=== PATIENT | female | born 1985 | race Caucasian/White ===

== ENCOUNTER 2017-05-30 11:56 | Emergency (ER) | payer BC ==
[2017-05-30 12:46] VITALS: BP 125/84; PULSE 74; RESP 16; TEMP 98.2; O2SAT 99
[2017-05-30 13:34] LABS: BASO % 0.5 % (0.0-2.0); EOS # 0.1 K/uL (0.0-0.7); EOS % 0.5 % (0.0-4.0); HEMOGLOBIN 13.8 g/dL (12.0-16.0); LYMPH # 2.2 K/uL (1.0-4.3); LYMPH % 23.3 % (20.0-40.0); MEAN CELL VOLUME 87.5 fl (81.0-99.0); MEAN CORPUSCULAR HEMOGLOBIN 29.1 pg (27.0-31.0); MEAN CORPUSCULAR HGB CONC 33.3 g/dL (33.0-37.0); MEAN PLATELET VOLUME 8.1 fl (7.2-11.7); MONO # 0.7 K/uL (0.0-0.8); MONO % 7.2 % (0.0-10.0); NEUT # 6.4 K/uL (1.8-7.0); NEUT % 68.5 % (50.0-75.0); NRBC % 0.1 % (0.0-0.0); RBC 4.75 Mil/uL (3.80-5.20); RED CELL DISTRIBUTION WIDTH 14.4 % (11.5-14.5); WHITE BLOOD COUNT 9.4 K/uL (4.8-10.8)
[2017-05-30 13:43] LABS: SQUAMOUS EPITHIAL 7 /hpf (0-5); URINE BACTERIA RARE (<OCC); URINE BILIRUBIN NEGATIVE (NEGATIVE); URINE BLOOD LARGE (NEGATIVE); URINE CLARITY CLOUDY (Clear); URINE COLOR YELLOW (YELLOW); URINE GLUCOSE (UA) NEG (Normal); URINE LEUKOCYTE ESTERASE TRACE Leu/uL (Negative); URINE PROTEIN 100 mg/dL (NEGATIVE); URINE UROBILINOGEN 0.2-1.0 mg/dL (0.2-1.0)
[2017-05-30 13:44] LABS: ALB/GLOB RATIO 1.1 (1.0-2.1); ALBUMIN 4.2 g/dL (3.5-5.0); ALT/SGPT 79 U/L (9-52); AST/SGOT 50 U/L (14-36); BLOOD UREA NITROGEN 11 mg/dl (7-17); CALCIUM 9.3 mg/dL (8.4-10.2); GFR AFRICAN-AMERICAN > 60; GFR NON-AFRICAN AMERICAN > 60
--- NOTE | 2017-05-30 14:50 | US ---
HISTORY: preg w heavy bleeding hx spont abort and ectopic beta HCG levels 129.00 COMPARISON: No current exam for this noted TECHNIQUE: Transvaginal technique FINDINGS: UTERUS: Measures 8.7 x 4.7 x 6.5 cm. Normal in size and appearance. No fibroid or other mass lesion seen. ENDOMETRIUM: Measures 9 mm in diameter. No intrauterine gestational sac seen CERVIX: Nabothian cysts noted RIGHT OVARY: Measures 3.6 x 2.3 x 2.8 cm. No solid mass. Normal flow. LEFT OVARY: Measures 3.7 x 2.0 x 2.7 cm. No solid mass. Normal flow. FREE FLUID: Large amount of free fluid in the right adnexa right cul-de-sac is present there are low level echoes within this fluid. The possibility of hemorrhagic go free fluid and an ectopic status needs to be considered. Patient also has some pain in the right hemipelvis. Beta HCG levels 129. And heavy bleeding history provided. History of prior spontaneous abortions an ectopic pregnancies OTHER FINDINGS: None. IMPRESSION: No normal-appearing intrauterine gestational sac. No viable ectopic pole identified. An ectopic nevertheless needs to be in the differential given the positive beta HCG levels, hemorrhagic appearing moderate free fluid present in the pelvis. Clinical correlation and follow-up recommended
--- NOTE | 2017-05-30 15:33 | ED PDOC ---
HPI: Female Pain Time Seen by Provider: 05/30/17 12:28 Chief Complaint (Nursing): Female Genitourinary Chief Complaint (Provider): with bleeding History Per: Patient History/Exam Limitations: no limitations Onset/Duration Of Symptoms: Hrs (4) Current Symptoms Are (Timing): Still Present Severity: None Quality Of Discomfort: Cramping Alleviating Factors: None Abnormal Vaginal Bleeding: Yes Last Menstral Period: 04/13/2017 : 6 Para: 2 Miscarriage: 3 (2-SA and 1-ectopic) Past Medical History Vital Signs: Last Vital Signs Temp 98.2 F 05/30/17 12:41 Pulse 74 05/30/17 12:41 Resp 16 05/30/17 12:41 BP 125/84 05/30/17 12:41 Pulse Ox 99 05/30/17 12:41 - Medical History PMH: Asthma - Home Medications Home Medications: Ambulatory Orders Medication Instructions Recorded Naproxen 375 mg PO Q8 PRN #21 tab 09/06/15 - Allergies Allergies/Adverse Reactions: Allergies Allergy/AdvReac Type Severity Reaction Status Date / Time No Known Allergies Allergy Verified 05/30/17 12:41 Review of Systems Genitourinary Female: Positive for: Vaginal Bleeding, Other ( approx 4- 6 weeks) Physical Exam - Reviewed Nursing Documentation Reviewed: Yes Vital Signs Reviewed: Yes - Physical Exam Appears: Positive for: Non-toxic, No Acute Distress Cardiovascular/Chest: Positive for: Chest Non Tender Respiratory: Positive for: Normal Breath Sounds. Negative for: Decreased Breath Sounds, Accessory Muscle Use, Crackles, Rales, Stridor, Wheezing Pulses-Carotid (L): 2+ Pulses-Carotid (R): 2+ Pulses-Dorsalis Pedis (R): 2+ Gastrointestinal/Abdominal: Positive for: Bowel Sounds. Negative for: Tenderness Pelvic Exam: Positive for: Active Bleeding - Laboratory Results Result Diagrams: 05/30/17 12:20 05/30/17 12:20 - ECG O2 Sat by Pulse Oximetry: 99 Medical Decision Making Medical Decision Making: r/o spontaneous r/o ectopic U/S indicates free fluid at both right and left adenxa Disposition - Clinical Impression Clinical Impression: Female genitourinary symptoms, - Patient ED Disposition Is Patient to be Admitted: No Discussed With : Samuel Nava (Dr Nava was consulted as the oncall OB as well as the patient's personal OB: he indicated that she should follow up in the office, return to ED if bleeding does not subside or pain worsens) Doctor Will See Patient In The: Office Counseled Patient/Family Regarding: Studies Performed, Diagnosis, Need For Followup - Disposition Referrals: Samuel Nava MD [Family Provider] - Condition: STABLE Instructions: Medications and , - The First Month, - The Second Month, - The Third Month, Activity During Forms: [employer] (Kiswahili)
== END 2017-05-30 16:29 | disposition home or self-care (01) ==
LOC: H.ER 11:56
DX: O26.859 Spotting complicating pregnancy, unspecified trimester (principal)

== ENCOUNTER 2017-06-01 10:40 | Emergency (ER) | payer BC ==
[2017-06-01 11:02] VITALS: BP 117/66; PULSE 76; RESP 20; TEMP 98.7; O2SAT 99; BMI 34.1
--- NOTE | 2017-06-01 11:20 | ED PDOC ---
HPI: Female Pain Time Seen by Provider: 06/01/17 10:43 Chief Complaint (Nursing): Female Genitourinary Chief Complaint (Provider): Vaginal bleeding in History Per: Patient History/Exam Limitations: no limitations Onset/Duration Of Symptoms: Days Current Symptoms Are (Timing): Still Present Additional Complaint(s): 32 yo female with history of 1 ectopic presents with abdominal pain and vaginal bleeding at 7 weeks of gestation, LMP 04/13/17. Pt seen in ER 2 days ago with similar symptoms and no IUP seen on US. Beta 129 on 05/30/17. Past Medical History Reviewed: Historical Data, Nursing Documentation, Vital Signs Vital Signs: Last Vital Signs Temp 98.7 F 06/01/17 10:58 Pulse 76 06/01/17 10:58 Resp 20 06/01/17 10:58 BP 117/66 06/01/17 10:58 Pulse Ox 99 06/01/17 10:58 - Medical History PMH: Asthma - Surgical History Surgical History: No Surg Hx - Family History Family History: States: No Known Family Hx - Living Arrangements Living Arrangements: With Family - Social History Current smoker - smoking cessation education provided: No - Home Medications Home Medications: Ambulatory Orders Medication Instructions Recorded Naproxen 375 mg PO Q8 PRN #21 tab 09/06/15 - Allergies Allergies/Adverse Reactions: Allergies Allergy/AdvReac Type Severity Reaction Status Date / Time No Known Allergies Allergy Verified 06/01/17 10:57 Review of Systems ROS Statement: Except As Marked, All Systems Reviewed And Found Negative Constitutional: Negative for: Fever, Chills Gastrointestinal: Positive for: Abdominal Pain. Negative for: Nausea, Vomiting Genitourinary Female: Positive for: Vaginal Bleeding. Negative for: Vaginal Discharge Physical Exam - Reviewed Nursing Documentation Reviewed: Yes Vital Signs Reviewed: Yes - Physical Exam Appears: Positive for: Well, Non-toxic, No Acute Distress Head Exam: Positive for: ATRAUMATIC, NORMAL INSPECTION, NORMOCEPHALIC Skin: Positive for: Normal Color, Warm, DRY Eye Exam: Positive for: Normal appearance ENT: Positive for: Normal ENT Inspection Neck: Positive for: Normal, Painless ROM Cardiovascular/Chest: Positive for: Regular Rate, Rhythm Respiratory: Positive for: Normal Breath Sounds. Negative for: Accessory Muscle Use, Respiratory Distress Back: Positive for: Normal Inspection Extremity: Positive for: Normal ROM Neurologic/Psych: Positive for: Alert, Oriented - Laboratory Results Result Diagrams: 06/01/17 11:37 06/01/17 11:37 - ECG O2 Sat by Pulse Oximetry: 99 Medical Decision Making Medical Decision Making: Repeat labs and US in ER. Beta Hcg is 57 today, approx 505% decreased. No IIUP on US. Pt has appointment on sunday with Dr. Nava. Disposition - Clinical Impression Clinical Impression: Miscarriage - Disposition Referrals: Jm Treviño MD [Staff Provider] - Disposition Time: 13:41 Condition: STABLE Additional Instructions: Please follow-up with SENIOR [facility]URITY ANALYST. Instructions: Miscarriage Forms: [employer] (Brazilian)
[2017-06-01 11:46] LABS: HEMOGLOBIN 13.4 g/dL (12.0-16.0); MEAN CELL VOLUME 88.2 fl (81.0-99.0); MEAN CORPUSCULAR HGB CONC 32.9 g/dL (33.0-37.0); RBC 4.61 Mil/uL (3.80-5.20); RED CELL DISTRIBUTION WIDTH 14.3 % (11.5-14.5)
[2017-06-01 11:53] LABS: ALT/SGPT 79 U/L (9-52); AST/SGOT 51 U/L (14-36); BLOOD UREA NITROGEN 13 mg/dl (7-17); GFR AFRICAN-AMERICAN > 60; GFR NON-AFRICAN AMERICAN > 60
--- NOTE | 2017-06-01 13:04 | US ---
HISTORY: abdominal pain, bleeding COMPARISON: Transvaginal obstetric ultrasound examination 05/30/2017. TECHNIQUE: Transvaginal and limited transabdominal pelvic ultrasound was performed with longitudinal and transverse images submitted for interpretation. FINDINGS: UTERUS: Measures 10.3 x 8.4 x 6.4 cm. Normal in size and appearance. No fibroid or other mass lesion seen. ENDOMETRIUM: Measures 10 mm in diameter. The endometrium appears unremarkable diffusely. No intrauterine gestation is identified at this time or even gestational sac. CERVIX: Nabothian cysts are again seen the cervix which is otherwise unremarkable. RIGHT OVARY: Measures 2.9 x 2.9 x 2.3 cm. No solid mass. Normal flow. No definite ectopic gestation identified. LEFT OVARY: Left ovary is not identified currently, most likely a function of overlying bowel gas obscuring it. No definite pattern of suggest ectopic at the left adnexal compartment. FREE FLUID: No significant free fluid noted. OTHER FINDINGS: None. IMPRESSION: Once again, there is no intrauterine gestation appreciated with the examination of the uterus unremarkable throughout. Nabothian cysts again seen the cervix. No definitive at adnexal evidence to suggest ectopic gestation. Further, decreasing serum beta HCG levels from 04/16 previously to 57.3 currently is noted. Consider failure of gestation as a primary diagnosis as result of sonographic and beta HCG findings. Ectopic gestation is not identified and is felt to be unlikely however clinical correlation is advised.
== END 2017-06-01 13:53 | disposition home or self-care (01) ==
LOC: H.ER 10:40
DX: O03.9 Complete or unspecified spontaneous abortion without complication (principal); Z3A.01 Less than 8 weeks gestation of pregnancy; J45.909 Unspecified asthma, uncomplicated

== ENCOUNTER 2018-01-01 16:45 | Emergency (ER) | payer BC ==
[2018-01-01 16:45] VITALS: BMI 34.1
[2018-01-01 17:01] VITALS: BP 113/63; PULSE 60; RESP 16; TEMP 98.6; O2SAT 96
== END 2018-01-01 18:15 | disposition left against medical advice (07) ==
LOC: H.ER 16:45
DX: Z02.89 Encounter for other administrative examinations (principal)

== ENCOUNTER 2018-04-26 08:57 | Emergency (ER) | payer BC ==
[2018-04-26 10:05] VITALS: BMI 25.7
--- NOTE | 2018-04-26 16:14 | US ---
Date of service: 04/26/2018 PROCEDURE: Obstetrical ultrasound examination HISTORY: Vaginal Bleeding COMPARISON: Not available TECHNIQUE: Transabdominal FINDINGS: Ultrasound examination demonstrates a single live intrauterine gestation in variable presentation. The heart rate is 135 beats per minute. A normal quantity of amniotic fluid is visualized. A posterior placenta is identified. There is no evidence of placenta previa. The cervix measures 3.7 cm in length and is closed. anatomy was not evaluated in this limited examination Biometry demonstrates the ultrasound age to be 22 weeks 5 days. The JORDAN by ultrasound is 08/25/2018 the EFW is 530.8 g. IMPRESSION: Limited examination. Anatomy not evaluated. Single live intrauterine gestation in variable presentation. Heart rate 135 beats per minute. Posterior placenta. No previa. Cervix long and closed.
[2018-04-26 20:19] VITALS: BP 96/50; PULSE 65; RESP 17; TEMP 97.8; O2SAT 99
--- NOTE | 2018-04-29 12:12 | OBHP ---
Datetime: 04/26/2018 11:00 IP Adm Impression: , intrauterine ; No Active Labor IP Admit Plan: Observation/Evaluation; Discharge home Admit Comment, IP Provider: @ 23wks reports to [facility] complaining of some bleeding after wiping. She denies any leakage of fluid and lower abdominal discomfort. PNC with Dr Nava. Last intercourse about 4 days ago. O: Afebrile, Heart: RRR Abd: Soft, NT, BS- present FHR- 150s regular Sterile Speculum Exam: No active bleeding from cervix or vagina. Cervix appears closed. Official Ultrasound Request: reports cervical length= 3.5 Assessment: Intrauterine at 23 weeks Bleeding in the second trimester of Plan: Discharge Home. Follow up with OB in 1 week. Pelvic Rest. Pelvic Type - PN: Adequate Extremities - PN: Normal Abdomen - PN: Normal Back - PN: Normal Breast - PN: Normal Lungs - PN: Normal Heart - PN: Normal Thyroid - PN: Normal Neurologic - PN: Normal HEENT - PN: Normal General - PN: Normal EGA AdmitDate IP: 23.0 IP Chief Complaint: Vaginal bleeding Genitourinary Exam: Normal DTRs - PN: Normal
== END 2018-04-26 15:00 | disposition home or self-care (01) ==
LOC: H.EROB2 08:57 → H.EROB 09:16 → H.EROB2 15:00
DX: O46.92 Antepartum hemorrhage, unspecified, second trimester (principal); Z3A.23 23 weeks gestation of pregnancy

== ENCOUNTER → 2018-05-15 | Emergency (ER) | payer BC ==
[2018-04-26 10:05] VITALS: BMI 25.7
--- NOTE | 2018-05-15 21:42 | OBHP ---
Datetime: 05/15/2018 18:16 IP Adm Impression: , intrauterine IP Admit Plan: Observation/Evaluation; Discharge home Admit Comment, IP Provider: 33 y/o , 25+5 wks based on U/S presents to [facility] because of low back pain and decreased movement of one day duration. Denies Loss of fluid, Vaginal bleeding or cont ractions. OBhx: Dr Nava, Last appointment was 05/06/18 4 SAB and 2 's- no complications PMHx: Hypothyroidism PSHx: Gastric Sleeve in 08/2017- no complications Allergies: NKDA Medications: PNVs and Levothyroxine 75mcg daily F/H: HTN, DM, Stroke Social Hx: Denies ETOH/smoking/drugs PE Gen: NAD Chest: RRR, S1S2 present Lungs: CTAB Abdomen: Gravid, NT, Soft Ext: No pedal edema Bedside ultrasound: Good movement noted on ultrasound; Breech presentation. SVE: Dr. Nava- Closed. A/P: 33 y/o , 25+5 wks based on U/S presents to [facility] because of low back pain and decreased fe al movement found to have a reactive NST and good movement on Ultrasound. - NST: reactive Category 1 without any contractions. - Patient to be discharged home and will be following up with Dr. Nava 06/03/18. ER precaution s given to patient at this time. Case discussed with Dr. Elijah Morales, PGY1 The patient was seen with the resident and I agree with the note Pelvic Type - PN: Adequate Extremities - PN: Normal Abdomen - PN: Normal Back - PN: Normal Breast - PN: Normal Lungs - PN: Normal Heart - PN: Normal Thyroid - PN: Normal Neurologic - PN: Normal HEENT - PN: Normal General - PN: Normal FHR - Baseline A Provider: 145 EGA AdmitDate IP: 25.5 Vital Signs Provider: Reviewed; Within Normal Limits IP Chief Complaint: Maternal discomfort NICHD Variability Prov Fetus A: Moderate 6-25bpm NICHD Accel Fetus A IP Provider: [id number] FHR Category Provider Fetus A: Category I NICHD Decel Fetus A IP Provider: None Dilatation, Provider: closed Genitourinary Exam: Normal DTRs - PN: Normal
[2018-05-15 22:50] VITALS: BP 108/54; PULSE 68; TEMP 98.6; O2SAT 100
== END | disposition home or self-care (01) ==
LOC: H.EROB2 17:03
DX: O26.92 Pregnancy related conditions, unspecified, second trimester (principal); M54.5 Low back pain; O36.8120 Decreased fetal movements, second trimester, not applicable or unspecified; Z3A.25 25 weeks gestation of pregnancy

== ENCOUNTER 2018-08-16 21:38 | Emergency (ER) | payer BC ==
[2018-08-17 03:15] VITALS: BP 91/51; PULSE 70; TEMP 98; O2SAT 100
--- NOTE | 2018-08-19 11:10 | OBHP ---
Datetime: 08/16/2018 22:24 IP Adm Impression: Term, intrauterine IP Admit Plan: Observation/Evaluation Admit Comment, IP Provider: 33 y/o , 39.0 weeks with JORDAN 08/23/18 presents to [facility] with Uterine CTx and lower abdominal pain. Patient had on and off CT for past 1 week however she is having CTx Q2 0-30 mins with lower abdominal pressure. Patient also did not feel FM for past 5-6 hrs. Denies VB, LO F, Urinary symptoms, F/C, Nausea. Denies any other complains ROS: 12 systems ROS negative except for mentioned above PMHx: Hypothyroisdism PSHx: Sleeve gastrectomy Allergies: Denies SocialHx: Denies smoking/drugs/alcohol F/H: Mother Thyroid disease Father: DM, Stroke, Ovarian Ca Meds: Synthroid 75 mcg and PNVs PE: Gen: NAD Chest: RRR, S1S2 present Lungs: CTAB Abdomen: Gravid, soft, NT Back: No CVA Ext: No pedal edema SVE: Fingertip/thick/high VSS [place] and EFM as above A/P: 33 y/o , 39.0 weeks with JORDAN 08/23/18 presents to [facility] with Uterine CTx - 1 CTx on toco - NST reactive, + accels, No decels - SVE: Fingertip/thick/high - Patient to be discharged home with labor precautions - F/U with Dr. Nava as scheduled on 08/19/18. Case discussed with Dr. Gilma Fair, PGY1 Attending Note: Patient was evaluated with the resident and I agree with the above. Pelvic Type - PN: Not Done Extremities - PN: Normal Abdomen - PN: Normal Back - PN: Normal Breast - PN: Not Done Lungs - PN: Normal Heart - PN: Normal Thyroid - PN: Not Done Neurologic - PN: Normal HEENT - PN: Normal General - PN: Normal FHR - Baseline A Provider: 120 Membranes, Provider: Intact Contraction Comments Provider: Occasional EGA AdmitDate IP: 39.0 Vital Signs Provider: Reviewed; Within Normal Limits IP Chief Complaint: Uterine contractions; Maternal discomfort NICHD Variability Prov Fetus A: Moderate 6-25bpm NICHD Accel Fetus A IP Provider: [id number] FHR Category Provider Fetus A: Category I NICHD Decel Fetus A IP Provider: None Dilatation, Provider: 0 Station, Provider: high Genitourinary Exam: Not Done DTRs - PN: Normal
== END 2018-08-16 22:45 | disposition home or self-care (01) ==
LOC: H.EROB2 21:38
DX: O26.93 Pregnancy related conditions, unspecified, third trimester (principal); R10.2 Pelvic and perineal pain; Z3A.39 39 weeks gestation of pregnancy; O47.1 False labor at or after 37 completed weeks of gestation